=== PATIENT | male | born 1975 | race Hispanic/Latino ===

== ENCOUNTER 2023-03-21 19:43 | Emergency (ER) | payer MEDICARE ==
[~2023-03-21] VITALS: Ht 175.3 cm; Wt 110.7 kg
[2023-03-21 21:36] VITALS: BP 135/87
[2023-03-21] MEDS ORDERED: FAMO20TA8 PO (23:13)
[2023-03-21] MEDS ORDERED: CEFD300C3 PO (23:13)
[2023-03-21] MEDS ORDERED: FAMOTIDINE 20MG TAB PO ONE (23:30)
[2023-03-21] MEDS ORDERED: MAG/ALUM/SIMETH 30 ML UDCUP PO ONE (23:30)
[2023-03-21] MEDS ORDERED: DICYCLOMINE HCL 10 MG/5 ML ML PO ONE (23:30)
[2023-03-21] MEDS ORDERED: LIDOCAINE HCL 2% VISCOUS 15 ML UDCUP PO ONE (23:30)
[2023-03-21 23:32] LABS: BASOPHILS % (AUTO) 0.2 % (0.0-5.0); EOSINOPHILS % (AUTO) 0.3 % (0.0-8.0); HEMATOCRIT 41.9 % (42-54); LYMPHOCYTES % (AUTO) 12.8 % (21.0-51.0); MEAN CORPUSCULAR HEMOGLOBIN 29.3 pg (27.0-33.0); MEAN CORPUSCULAR HGB CONC 32.5 g/dL (32.0-36.0); MEAN CORPUSCULAR VOLUME 90.3 fL (79-99); MONOCYTES % (AUTO) 10.3 % (3.0-13.0); NEUTROPHILS % (AUTO) 75.8 % (40.0-77.0); PLATELET COUNT (AUTO) 141 K/uL (130-400); RED BLOOD CELL COUNT(AUTO) 4.64 MIL/uL (4.50-6.20); WHITE BLOOD COUNT (AUTO) 11.1 K/uL (4.8-10.8)
[2023-03-21 23:39] LABS: POTASSIUM 4.2 mmol/L (3.5-5.1)
[2023-03-21 23:44] LABS: ALBUMIN 3.4 g/dL (3.5-5.0); TOTAL PROTEIN, SERUM 8.1 g/dL (6.0-8.3)
== END 2023-03-21 23:55 | disposition home or self-care (01) ==
LOC: EDH 19:43
DX: J02.0 Streptococcal pharyngitis (principal); K29.00 Acute gastritis without bleeding; E11.9 Type 2 diabetes mellitus without complications; Z20.822 Contact with and (suspected) exposure to COVID-19
CPT/HCPCS: 99284; 87635; 80053; 85025; 87880; 87804 ×2; 36415; C9803